=== PATIENT | female | born 1970 | race Caucasian/White ===

== ENCOUNTER 2017-06-14 01:34 | Observation (INO) | payer BC, OTHER ==
[2017-06-14] MEDS: morphine 4 MG/ML VIAL IV (02:17)
[2017-06-14] MEDS: SOD CHLORIDE 0.9% 1,000 ML IV ×2 (02:17→05:05)
[2017-06-14] MEDS: ONDANSETRON 4 MG INJ IV (02:17)
[2017-06-14 02:31] LABS: ADD MAN DIFF? NO
[2017-06-14 02:32] LABS: BASOPHILS % 0.2 % (0.0-2.0); EOSINOPHILS # 0.2 10^3/ul (0.0-0.5); EOSINOPHILS % 1.7 % (0.0-7.0); HEMOGLOBIN 12.8 g/dl (12.0-16.0); LYMPHOCYTES # 1.9 10^3/ul (0.8-2.9); LYMPHOCYTES % 21.5 % (15.0-51.0); MEAN CORPUSCULAR HEMOGLOBIN 30.8 pg (29.0-33.0); MEAN CORPUSCULAR HGB CONC 33.7 g/dl (32.0-37.0); MEAN CORPUSCULAR VOLUME 91.3 fl (82.0-101.0); MEAN PLATELET VOLUME 11.4 fl (7.4-10.4); MONOCYTE # 1.1 10^3/ul (0.3-0.9); NEUTROPHIL # 5.8 10^3/ul (1.6-7.5); NEUTROPHILS % 64.2 % (39.0-77.0); PLATELET COUNT 232 10^3/UL (140-415); RED BLOOD COUNT 4.16 10^6/ul (4.20-5.40); RED CELL DISTRIBUTION WIDTH 12.8 % (11.5-14.5)
[2017-06-14 02:51] LABS: ALANINE AMINOTRANSFERASE 21 IU/L (13-69); ALBUMIN 4.3 g/dl (3.3-4.9); ALBUMIN/GLOBULIN RATIO 1.22; ALKALINE PHOSPHATASE 87 IU/L (42-121); ANION GAP 17 (8-16); ASPARTATE AMINO TRANSFERASE 20 IU/L (15-46); BILIRUBIN,INDIRECT 0.3 mg/dl (0-1.1); BILIRUBIN,TOTAL 0.3 mg/dl (0.2-1.3); BLOOD UREA NITROGEN 10 mg/dl (7-20); CARBON DIOXIDE 26 mmol/L (21-31); CHLORIDE 103 mmol/L (97-110); CREATININE 0.66 mg/dl (0.44-1.00); GLUCOSE 114 mg/dl (70-220); LIPASE 104 U/L (23-300); POTASSIUM 3.5 mmol/L (3.5-5.1); SODIUM 142 mmol/L (135-144); TOTAL PROTEIN 7.8 g/dl (6.1-8.1)
[2017-06-14] MEDS: IOHEXOL 300MG/ML 150 ML BTL (03:27)
[2017-06-14] MEDS: SOD CHLORIDE 0.9% 100 ML (03:27)
[2017-06-14] MEDS: KETOROLAC 30 MG INJ IV (05:44)
[2017-06-14] MEDS ORDERED: morphine 2 MG INJ IV ×2 (06:30→09:30)
[2017-06-14] MEDS ORDERED: ZOLPIDEM 5 MG TAB PO (06:30)
[2017-06-14] MEDS ORDERED: NACL 0.9% 3 ML SYG IV (06:30)
[2017-06-14] MEDS ORDERED: ONDANSETRON 4 MG INJ IV (06:30)
[2017-06-14] MEDS ORDERED: NITROGLYCERIN 50 MG/D5W (PMX) 250 ML (08:15)
[2017-06-14] MEDS: PIPER-TAZO 3.375 GM IV (PMX) 100 ML IVPB ×4 (08:38→23:51)
[2017-06-14] MEDS: DEXTROSE 5%-0.45% NACL 1,000 ML IV ×3 (08:38→21:24)
[2017-06-14 12:25] LABS: INR 1.08; PARTIAL THROMBOPLASTIN TIME 41.1 Sec (25.0-35.0); PROTIME 14.1 Sec (11.9-14.9); PT RATIO 1.1
[2017-06-14 12:52] LABS: ADD UMIC YES; CANCER ANTIGEN 125 9.6 U/ml (0.0-35.0); UR AMORPHOUS CRYSTAL FEW /HPF (NONE SEEN); UR ASCORBIC ACID NEGATIVE (NEGATIVE); UR BACTERIA FEW /HPF (NONE SEEN); UR BILIRUBIN (Dip) NEGATIVE (NEGATIVE); UR BLOOD (Dip) NEGATIVE (NEGATIVE); UR CLARITY CLOUDY (CLEAR); UR COLOR YELLOW (YELLOW); UR GLUCOSE (Dip) NEGATIVE (NEGATIVE); UR KETONES (Dip) NEGATIVE (NEGATIVE); UR LEUKOCYTE ESTERASE (Dip) NEGATIVE Leu/ul (NEGATIVE); UR NITRITE (Dip) NEGATIVE (NEGATIVE); UR RBC 131 /HPF (0-5); UR SPECIFIC GRAVITY (Dip) 1.024 (1.003-1.030); UR SQUAMOUS EPITHELIAL CELL FEW /HPF (FEW); UR TOTAL PROTEIN (Dip) NEGATIVE (NEGATIVE); UR UROBILINOGEN (Dip) NEGATIVE (NEGATIVE); UR WBC 22 /HPF (0-5)
[2017-06-14 12:52] LABS: CARCINOEMBRYONIC ANTIGEN 0.6 ng/ml (0.0-5.0)
[2017-06-15] MEDS: PANTOPRAZOLE 40 MG INJ IV (05:28)
[2017-06-15] MEDS: PIPER-TAZO 3.375 GM IV (PMX) 100 ML IVPB ×3 (05:30→17:39)
[2017-06-15 06:51] LABS: ADD MAN DIFF? NO
[2017-06-15 06:59] LABS: BASOPHILS % 0.4 % (0.0-2.0); EOSINOPHILS # 0.1 10^3/ul (0.0-0.5); EOSINOPHILS % 1.9 % (0.0-7.0); HEMATOCRIT 33.5 % (37.0-47.0); HEMOGLOBIN 11.1 g/dl (12.0-16.0); LYMPHOCYTES # 1.5 10^3/ul (0.8-2.9); LYMPHOCYTES % 21.1 % (15.0-51.0); MEAN CORPUSCULAR HEMOGLOBIN 30.4 pg (29.0-33.0); MEAN CORPUSCULAR HGB CONC 33.1 g/dl (32.0-37.0); MEAN CORPUSCULAR VOLUME 91.8 fl (82.0-101.0); MEAN PLATELET VOLUME 11.4 fl (7.4-10.4); MONOCYTE # 0.7 10^3/ul (0.3-0.9); MONOCYTES % 9.3 % (0.0-11.0); NEUTROPHIL # 4.7 10^3/ul (1.6-7.5); NEUTROPHILS % 66.9 % (39.0-77.0); PLATELET COUNT 239 10^3/UL (140-415); RED BLOOD COUNT 3.65 10^6/ul (4.20-5.40); RED CELL DISTRIBUTION WIDTH 12.9 % (11.5-14.5)
[2017-06-15 07:25] LABS: ALANINE AMINOTRANSFERASE 18 IU/L (13-69); ALBUMIN 3.5 g/dl (3.3-4.9); ALBUMIN/GLOBULIN RATIO 1.12; ALKALINE PHOSPHATASE 68 IU/L (42-121); ANION GAP 15 (8-16); ASPARTATE AMINO TRANSFERASE 16 IU/L (15-46); BILIRUBIN,INDIRECT 0.6 mg/dl (0-1.1); BILIRUBIN,TOTAL 0.6 mg/dl (0.2-1.3); BLOOD UREA NITROGEN 4 mg/dl (7-20); CALCIUM 8.8 mg/dl (8.4-10.2); CARBON DIOXIDE 26 mmol/L (21-31); CHLORIDE 106 mmol/L (97-110); CREATININE 0.52 mg/dl (0.44-1.00); GLUCOSE 99 mg/dl (70-220); MAGNESIUM 1.8 mg/dl (1.7-2.5); POTASSIUM 3.7 mmol/L (3.5-5.1); SODIUM 143 mmol/L (135-144); TOTAL PROTEIN 6.6 g/dl (6.1-8.1)
[2017-06-15] MEDS: DEXTROSE 5%-0.45% NACL 1,000 ML IV (08:32)
[2017-06-15] MEDS: DOCUSATE SODIUM 100 MG CAP PO (09:37)
[2017-06-15] MEDS: BISACODYL (EC) 5 MG TAB PO (09:37)
[2017-06-15 15:14] LABS: INR 1.07; PT RATIO 1.1
[2017-06-15 15:15] LABS: PARTIAL THROMBOPLASTIN TIME 35.4 Sec (25.0-35.0)
== END 2017-06-15 18:55 | disposition home or self-care (01) ==
LOC: E/R 01:34 → PP2 06:17
DX: N83.202 Unspecified ovarian cyst, left side (principal); K56.7 Ileus, unspecified; J45.909 Unspecified asthma, uncomplicated; Z98.51 Tubal ligation status
CPT/HCPCS: 36415; 72197; 74018; 74177; 76830; 76856; 80053; 81001; 81025; 82378; 83690; 83735; 85025; 85610; 85730; 86304; 86850; 86900; 86901; 87040; 87086; 96365; 96375; 99285-25; G0378

== ENCOUNTER 2018-07-06 22:51 | Emergency (ER) | payer BC ==
[2018-07-07] MEDS: SOD CHLORIDE 0.9% 1,000 ML IV (04:00)
[2018-07-07] MEDS: ONDANSETRON 4 MG INJ IV (04:00)
[2018-07-07] MEDS: morphine 4 MG/ML VIAL IV (04:02)
[2018-07-07 04:07] LABS: ADD MAN DIFF? NO
[2018-07-07 04:09] LABS: BASOPHIL # 0.1 10^3/ul (0.0-0.1); BASOPHILS % 0.5 % (0.0-2.0); EOSINOPHILS % 0.4 % (0.0-7.0); HEMATOCRIT 43.1 % (37.0-47.0); HEMOGLOBIN 14.5 g/dl (12.0-16.0); LYMPHOCYTES # 2.2 10^3/ul (0.8-2.9); LYMPHOCYTES % 23.4 % (15.0-51.0); MEAN CORPUSCULAR HEMOGLOBIN 30.7 pg (29.0-33.0); MEAN CORPUSCULAR HGB CONC 33.6 g/dl (32.0-37.0); MEAN CORPUSCULAR VOLUME 91.3 fl (82.0-101.0); MONOCYTE # 0.5 10^3/ul (0.3-0.9); MONOCYTES % 4.8 % (0.0-11.0); NEUTROPHIL # 6.7 10^3/ul (1.6-7.5); NEUTROPHILS % 70.3 % (39.0-77.0); PLATELET COUNT 268 10^3/UL (140-415); RED BLOOD COUNT 4.72 10^6/ul (4.20-5.40); RED CELL DISTRIBUTION WIDTH 12.5 % (11.5-14.5)
[2018-07-07 04:09] LABS: WHITE BLOOD COUNT 9.5 10^3/ul (4.8-10.8)
[2018-07-07 04:19] LABS: ADD UMIC YES; UR ASCORBIC ACID NEGATIVE (NEGATIVE); UR BILIRUBIN (Dip) NEGATIVE (NEGATIVE); UR BLOOD (Dip) NEGATIVE (NEGATIVE); UR BUDDING YEAST FEW /HPF (NONE SEEN); UR CLARITY CLEAR (CLEAR); UR COLOR STRAW (YELLOW); UR GLUCOSE (Dip) NEGATIVE (NEGATIVE); UR KETONES (Dip) NEGATIVE (NEGATIVE); UR LEUKOCYTE ESTERASE (Dip) TRACE Leu/ul (NEGATIVE); UR NITRITE (Dip) NEGATIVE (NEGATIVE); UR RBC 1 /HPF (0-5); UR SPECIFIC GRAVITY (Dip) 1.005 (1.003-1.030); UR TOTAL PROTEIN (Dip) NEGATIVE (NEGATIVE); UR UROBILINOGEN (Dip) NEGATIVE (NEGATIVE); UR WBC 2 /HPF (0-5)
[2018-07-07 04:30] LABS: ALANINE AMINOTRANSFERASE 30 IU/L (13-69); ALBUMIN/GLOBULIN RATIO 1.28; ALKALINE PHOSPHATASE 85 IU/L (42-121); AMYLASE 130 U/L (11-123); ANION GAP 11 (5-13); ASPARTATE AMINO TRANSFERASE 39 IU/L (15-46); BILIRUBIN,INDIRECT 0.6 mg/dl (0-1.1); BILIRUBIN,TOTAL 0.6 mg/dl (0.2-1.3); BLOOD UREA NITROGEN 10 mg/dl (7-20); CALCIUM 9.9 mg/dl (8.4-10.2); CARBON DIOXIDE 29 mmol/L (21-31); CHLORIDE 104 mmol/L (97-110); CREATININE 0.46 mg/dl (0.44-1.00); Estimated GFR > 60 mL/min (>60); GLUCOSE 122 mg/dl (70-220); LIPASE 127 U/L (23-300); POTASSIUM 4.5 mmol/L (3.5-5.1); SODIUM 144 mmol/L (135-144); TOTAL PROTEIN 8.9 g/dl (6.1-8.1)
[2018-07-07 04:51] LABS: INR 0.92; PROTIME 12.5 Sec (11.9-14.9)
[2018-07-07 04:52] LABS: PARTIAL THROMBOPLASTIN TIME 31.3 Sec (23.0-35.0)
[2018-07-07 05:05] LABS: TROPONIN-I < 0.012 ng/ml (0.000-0.120)
== END 2018-07-07 05:55 | disposition home or self-care (01) ==
LOC: FTE 07-07 05:55
DX: R10.13 Epigastric pain (principal)
CPT/HCPCS: 36415; 74176; 76705; 80053; 81001; 81025; 82150; 83690; 84484; 85025; 85610; 85730; 87086; 96374; 96375; 99285-25